=== PATIENT | male | born 1995 | race American Indian/Alaskan Native ===

== ENCOUNTER 2018-11-09 19:20 | Emergency (ER) | payer SELFPAY ==
--- NOTE | 2018-11-09 20:48 | Emergency Department Report ---
ED General Adult HPI - General Chief complaint: Headache Stated complaint: HEADACHE & CHEST PAIN Source: patient Mode of arrival: Ambulatory Limitations: No Limitations - History of Present Illness Initial comments: 23yo M stated that he has sharp chest pain and headache for the past 3 weeks. He went further to say that he has a non-productive cough with runny nose. He went further to say that he has not had an Albuterol inhaler in a long time. -: Gradual, week(s) (3 weeks ago symptoms began) Location: head, chest Radiation: non-radiation Severity scale (0 -10): 7 Quality: aching Consistency: constant Improves with: none Worsens with: none Associated Symptoms: other (runny nose) - Related Data Previous Rx's Medication Instructions Recorded Last Taken Type ALBUTEROL Inhaler (OR & NICU) 2 puff IH QID PRN 30 Days #1 11/09/18 Unknown Rx [Proair] inhalation Allergies Allergy/AdvReac Type Severity Reaction Status Date / Time No Known Allergies Allergy Verified 11/09/18 19:22 ED Review of Systems ROS: Stated complaint: HEADACHE & CHEST PAIN Other details as noted in HPI Constitutional: denies: chills, fever Eyes: denies: eye pain, eye discharge, vision change ENT: denies: ear pain, throat pain Respiratory: denies: cough, shortness of breath, wheezing Cardiovascular: denies: chest pain, palpitations Endocrine: no symptoms reported Gastrointestinal: denies: abdominal pain, nausea, diarrhea Genitourinary: denies: urgency, dysuria Skin: denies: rash, lesions Neurological: denies: headache, weakness, paresthesias Psychiatric: denies: anxiety, depression Hematological/Lymphatic: denies: easy bleeding, easy bruising ED Past Medical Hx - Past Medical History Previous Medical History?: Yes Hx Asthma: Yes - Surgical History Past Surgical History?: Yes Additional Surgical History: left jaw - Social History Smoking Status: Current Every Day Smoker Substance Use Type: None - Medications Home Medications: Home Medications Medication Instructions Recorded Confirmed Last Taken Type ALBUTEROL Inhaler (OR & NICU) 2 puff IH QID PRN 30 Days #1 11/09/18 Unknown Rx [Proair] inhalation ED Physical Exam - General Limitations: No Limitations General appearance: alert, in no apparent distress - Head Head exam: Present: atraumatic, normocephalic - Eye Eye exam: Present: normal appearance - ENT ENT exam: Present: mucous membranes moist - Neck Neck exam: Present: normal inspection - Respiratory Respiratory exam: Present: decreased breath sounds - Cardiovascular Cardiovascular Exam: Present: regular rate, normal rhythm. Absent: systolic murmur, diastolic murmur, rubs, gallop - GI/Abdominal GI/Abdominal exam: Present: soft, normal bowel sounds - Rectal Rectal exam: Present: deferred - Extremities Exam Extremities exam: Present: normal inspection - Back Exam Back exam: Present: normal inspection - Neurological Exam Neurological exam: Present: alert, oriented X3 - Psychiatric Psychiatric exam: Present: normal affect, normal mood - Skin Skin exam: Present: warm, dry, intact, normal color. Absent: rash ED Course Vital Signs 11/09/18 11/09/18 19:26 20:51 Temperature 98.0 F Pulse Rate 94 H 69 Respiratory 18 16 Rate Blood Pressure 135/81 O2 Sat by Pulse 99 99 Oximetry ED Medical Decision Making - Medical Decision Making 23yo M stated that he has sharp chest pain and headache for the past 3 weeks. He went further to say that he has a non-productive cough with runny nose. He went further to say that he has not had an Albuterol inhaler in a long time. Pt was given a nebulizer treatment and steroid treatment. Pt stated that he felt relief after treatment. He was prescribed a ANA inhaler and was told to F/U with primary care. Critical care attestation.: If time is entered above; I have spent that time in minutes in the direct care of this critically ill patient, excluding procedure time. ED Disposition Clinical Impression: Asthma attack Qualifiers: Asthma severity: mild Asthma persistence: intermittent Qualified Code(s): J45.21 - Mild intermittent asthma with (acute) exacerbation Disposition: - TO HOME OR SELFCARE Is pt being admited?: No Does the pt Need Aspirin: No Condition: Stable Instructions: Asthma (ED) Additional Instructions: Pt was instructed to use ANA inhaler as directed and f/u with primary care provider. See ER as needed if shortness of breath or headache worsens. Prescriptions: ALBUTEROL Inhaler (OR & NICU) [Proair] 2 puff IH QID PRN 30 Days #1 inhalation PRN Reason: Shortness Of Breath Referrals: HALI VELEZ MD [Primary Care Provider] - 3-5 Days Forms: Accompanied Note, Work/School Release Form(ED) Time of Disposition: 23:05
[2018-11-09 20:50] VITALS: BP 135/81
[2018-11-09] MEDS ORDERED: PROVENTIL IH ONE (20:59)
[2018-11-09] MEDS ORDERED: DECADRON IV ONE (21:00)
== END 2018-11-09 23:39 | disposition home or self-care (01) ==
LOC: ED 19:20
DX: J45.901 Unspecified asthma with (acute) exacerbation (principal); R51 Headache; F17.200 Nicotine dependence, unspecified, uncomplicated
CPT/HCPCS: 94640; 96374; 99283; J1100